=== PATIENT | female | born 1965 | race Caucasian/White ===

== ENCOUNTER 2018-11-03 08:55 | Inpatient (IN) | payer MEDICAID ==
[~2018-11-03] VITALS: Ht 152.4 cm; Wt 38.6 kg
[2018-11-03] MEDS ORDERED: IV NORMAL SALINE 1000 ML BAG IV ONE (09:15)
--- NOTE | 2018-11-03 09:30 | NUR ---
pt is in room #1b. dr Augustin evaluated the pt.
[2018-11-03 09:41] LABS: CARBON DIOXIDE 24 mmol/L (21-32); CREATININE 1.3 mg/dL (0.6-1.3); GLUCOSE 91 mg/dL (74-106); UREA NITROGEN, BLOOD 23 mg/dL (7-18)
[2018-11-03 09:41] LABS: BASOPHILS % (AUTO) 0.5 % (0.0-2.0); EOSINOPHILS % (AUTO) 0.2 % (0.0-7.0); HEMATOCRIT 30.7 % (31.2-41.9); HEMOGLOBIN 10.5 g/dL (10.9-14.3); LYMPHOCYTES % (AUTO) 12.6 % (20.5-51.5); MEAN CORPUSCULAR HEMOGLOBIN 34.5 uug (24.7-32.8); MEAN CORPUSCULAR HGB CONC 34 g/dL (32.3-35.6); MEAN CORPUSCULAR VOLUME 100.7 fL (75.5-95.3); MONOCYTES # (AUTO) 0.3 K/uL (2.0-10.0); MONOCYTES % (AUTO) 4.2 % (0.0-11.0); NEUTROPHILS # (AUTO) 6.7 K/uL (1.8-8.9); NEUTROPHILS % (AUTO) 82.5 % (38.5-71.5); PLATELET COUNT (AUTO) 188 K/uL (179-408); RED BLOOD CELL COUNT(AUTO) 3.05 MIL/uL (3.63-4.92); WHITE BLOOD COUNT (AUTO) 8.1 K/uL (3.8-11.8)
[2018-11-03] MEDS ORDERED: FAMO40TA71 PO (09:41)
[2018-11-03] MEDS ORDERED: DIVA-78 PO (09:41)
[2018-11-03] MEDS ORDERED: METO25TA6 PO (09:41)
[2018-11-03] MEDS ORDERED: CARV3.122 PO (09:41)
[2018-11-03] MEDS ORDERED: AMLO10TA7 PO (09:41)
[2018-11-03] MEDS ORDERED: CALC-494 PO (09:41)
[2018-11-03] MEDS ORDERED: ASPI-605 PO (09:41)
[2018-11-03] MEDS ORDERED: HYDR50TA3 PO (09:41)
[2018-11-03] MEDS ORDERED: ARIP5TAB10 PO (09:41)
[2018-11-03] MEDS ORDERED: SODI650T PO (09:41)
[2018-11-03] MEDS ORDERED: [UNRECOGNIZED DRUG - CODE] PO (09:41)
[2018-11-03] MEDS ORDERED: BENA40TA8 PO (09:41)
[2018-11-03] MEDS ORDERED: CALC-20 PO (09:41)
[2018-11-03] MEDS ORDERED: MULT1TAB73 PO (09:41)
[2018-11-03] MEDS ORDERED: NIFE20CA8 PO (09:41)
[2018-11-03] MEDS ORDERED: CLON0.2T PO (09:41)
[2018-11-03] MEDS ORDERED: MELA3TAB PO (09:41)
[2018-11-03] MEDS ORDERED: SULF1TAB48 PO (09:41)
[2018-11-03] MEDS ORDERED: POTA10TA15 PO (09:41)
[2018-11-03] MEDS ORDERED: CITR15SO PO (09:41)
[2018-11-03] MEDS ORDERED: LOPE2CAP PO (09:41)
[2018-11-03] MEDS ORDERED: CHOL200010 PO (09:41)
[2018-11-03] MEDS ORDERED: ATOR40TA PO (09:41)
[2018-11-03] MEDS ORDERED: LEVO50TA8 PO (09:41)
[2018-11-03] MEDS ORDERED: HYDR-3801 PO (09:41)
[2018-11-03] MEDS ORDERED: LACO200T2 PO (09:41)
[2018-11-03] MEDS ORDERED: MAGN64TA13 PO (09:41)
[2018-11-03 09:42] LABS: CHLORIDE 104 mmol/L (98-107); POTASSIUM 5.1 mmol/L (3.5-5.1)
[2018-11-03 09:48] LABS: ACETAMINOPHEN 3.6 ug/mL (10-30); ALANINE AMINOTRANSFERASE 589 U/L (14-59); ALKALINE PHOSPHATASE 412 U/L (50-136); ASPARTATE AMINOTRANSFERASE 172 U/L (15-37); BILIRUBIN,DIRECT 0.1 mg/dL (0.0-0.2); BILIRUBIN,TOTAL 0.3 mg/dL (0.2-1.0); TOTAL PROTEIN, SERUM 6.7 g/dL (6.4-8.2)
[2018-11-03 09:50] LABS: ETHANOL < 3 MG/DL (0-0)
[2018-11-03 10:02] LABS: *BILIRUBIN,URIN NEGATIVE (NEGATIVE); *BLOOD, URINE NEGATIVE (NEGATIVE); *CLARITY,URINE CLEAR (CLEAR); *COLOR,URINE YELLOW (YELLOW); *KETONES,URINE NEGATIVE (NEGATIVE); *UROBILINOGEN,URINE 0.2 E.U./dl (NORMAL); LEUKOCYTE ESTERASE ,URINE TRACE (NEGATIVE); NITRITE, URINE NEGATIVE (NEGATIVE); PH,URINE 7.5 (5.0-8.0); UGLUCOSE NEGATIVE (NEGATIVE)
[2018-11-03 10:06] LABS: BACTERIA,URINE FEW /HPF (NONE SEEN); RBC,URINE NONE SEEN /HPF (0-3); SQUAMOUS EPITHELIAL CELL,UR FEW /HPF (NONE SEEN)
[2018-11-03 10:11] LABS: *AMPHETAMINE, URINE NEGATIVE (NEGATIVE); *BARBITURATE, URINE NEGATIVE (NEGATIVE); *CANNABINOID, URINE NEGATIVE (NEGATIVE); *COCCAINE, URINE NEGATIVE (NEGATIVE); *OPIATE, URINE NEGATIVE (NEGATIVE); *PHENCYCLIDINE SCREEN,URINE NEGATIVE (NEGATIVE)
[2018-11-03] MEDS ORDERED: PIPERACILLIN SODIUM/TAZOBACTAM 3.375 G in IV DEXTROSE 5% 50 ML IV ONE (10:15)
[2018-11-03] MEDS ORDERED: METRONIDAZOLE 500 MG/NS 100 ML PIGGYBACK IV ONE (10:15)
[2018-11-03] MEDS ORDERED: METRONIDAZOLE 500 MG/NS 100ML 100 ML IV ONE (10:16)
[2018-11-03] MEDS ORDERED: PIPERACILLIN/TAZOBACTAM/D5W 50 ML IV ONE (10:16)
[2018-11-03] MEDS ORDERED: LORAZEPAM 2 MG/1 ML VIAL IV ONE (10:30)
[2018-11-03] MEDS ORDERED: LORAZEPAM 2 MG/1 ML VIAL ONE (10:33)
[2018-11-03] MEDS ORDERED: Z GUARD REMEDY PASTE 57 GM TUBE TOP PRN (11:15)
[2018-11-03] MEDS ORDERED: ACETAMINOPHEN 325 MG TABLET PO PRN (11:15)
[2018-11-03] MEDS ORDERED: LOPERAMIDE HCL 2 MG CAPSULE PO PRN (11:15)
[2018-11-03] MEDS ORDERED: ONDANSETRON 4 MG/2 ML VIAL IV PRN (11:15)
[2018-11-03] MEDS ORDERED: HYDROCODONE/APAP 5-325MG TABLET PO PRN (11:15)
[2018-11-03] MEDS ORDERED: MAGNESIUM HYDROXIDE 30 ML LIQUID UDC PO PRN (11:15)
--- NOTE | 2018-11-03 11:33 | NUR ---
REPORT WAS GIVEN TO MEAT PACKER. PT WAS TRANSFERED TO ROOM #307.
--- NOTE | 2018-11-03 12:00 | NUR ---
ADMITTED FROM HOME VIA ER AWAKE ALERT BUT CONFUSED X3 WITH AT BEDSIDE, DENIES PAIN OR SOB. ROUTINE ADMISSION ASSESSMENT INITIATED DR CR NOTIFIED OF ADMISSION WITH ORDERS. CONTINUE WITH TELE MONITORING
[2018-11-03 12:46] VITALS: BP 153/83
[2018-11-03] MEDS: IV NS 1000 ML 1,000 ML IV PRN (12:57)
[2018-11-03 16:17] VITALS: BP 167/79
[2018-11-03] MEDS: DIVALPROEX 500 MG TABLET.DR PO SCH (16:40)
[2018-11-03] MEDS: CLONIDINE HCL 0.2 MG TABLET PO SCH (16:40)
[2018-11-03] MEDS: CEFTRIAXONE 1 G in IV DEXTROSE 5% 50 ML IV SCH (16:41)
[2018-11-03] MEDS: HYDROCORTISONE 10 MG TABLET PO SCH (16:43)
[2018-11-03] MEDS ORDERED: NIFEDIPINE 60 MG PO SCH (17:00)
--- NOTE | 2018-11-03 17:16 | NUR ---
PATIENT WITH ON AND OFF CONFUSION AND CRYING "I WANT MY ROLLER SKATE BOARD" WANTS TO GET OUT OF BED. SR ON MONITOR. CLOSELY MONITORED.
[2018-11-03] MEDS: CARVEDILOL 3.125 MG TABLET PO SCH (18:00)
--- NOTE | 2018-11-03 19:30 | NUR ---
PATIENT RECEIVED LYING IN BED AND CONFUSED. NO SIGNS OF ACUTE DISTRESS. COMFORT MEASURES PROVIDED. BED IN LOWEST POSITION. SIDE RAILS X2.
--- NOTE | 2018-11-03 19:31 | NUR ---
RECEIVED PT ON BED. PT SHOWS NO ACUTE DISTRESS. IV INTACT AND INFUSING NS. SAFETY AND COMFORT PROVIDED. WILL CONTINUE TO MONITOR.
[2018-11-03] MEDS: METOPROLOL TARTRATE 25 MG TABLET PO SCH (21:00)
[2018-11-03 21:09] VITALS: BP 105/55
[2018-11-03] MEDS: ATORVASTATIN 40 MG TABLET PO SCH (21:22)
[2018-11-03] MEDS: MELATONIN 3 MG TABLET PO SCH (21:22)
[2018-11-03] MEDS: LACOSAMIDE 50 MG TABLET PO SCH (21:22)
[2018-11-03] MEDS: FAMOTIDINE 20 MG TABLET PO SCH (21:32)
[2018-11-04] MEDS: IV NS 1000 ML 1,000 ML IV PRN ×2 (02:03→13:58)
[2018-11-04 05:09] VITALS: BP 118/62
[2018-11-04] MEDS: LEVOTHYROXINE SODIUM 50 MCG TABLET PO SCH (06:09)
[2018-11-04 06:44] LABS: BASOPHILS # (AUTO) 0.1 K/uL (0.0-8.0); BASOPHILS % (AUTO) 0.9 % (0.0-2.0); EOSINOPHILS # (AUTO) 0.1 K/uL (0.0-0.7); EOSINOPHILS % (AUTO) 0.9 % (0.0-7.0); HEMATOCRIT 27.7 % (31.2-41.9); HEMOGLOBIN 9.3 g/dL (10.9-14.3); LYMPHOCYTES # (AUTO) 2.3 K/uL (20.0-40.0); LYMPHOCYTES % (AUTO) 35.7 % (20.5-51.5); MEAN CORPUSCULAR HEMOGLOBIN 33.9 uug (24.7-32.8); MEAN CORPUSCULAR HGB CONC 34 g/dL (32.3-35.6); MONOCYTES # (AUTO) 0.6 K/uL (2.0-10.0); MONOCYTES % (AUTO) 8.6 % (0.0-11.0); NEUTROPHILS # (AUTO) 3.5 K/uL (1.8-8.9); NEUTROPHILS % (AUTO) 53.9 % (38.5-71.5); PLATELET COUNT (AUTO) 164 K/uL (179-408); RED BLOOD CELL COUNT(AUTO) 2.75 MIL/uL (3.63-4.92); WHITE BLOOD COUNT (AUTO) 6.4 K/uL (3.8-11.8)
--- NOTE | 2018-11-04 06:53 | NUR ---
SHIFT REPORT GIVEN TO AM NURSE. PATIENT INTERMITTENTLY SLEEPING. CONFUSED AND FORGETFULL. NO SIGNS OF ACUTE DISTRESS. A/O X4. COMFORT MEASURES PROVIDED. BED IN LOWEST POSITION. SIDE RAILS UP X2. HOB ELEVATED FOR ASPIRATION PRECAUTIONS.
[2018-11-04 07:07] LABS: MAGNESIUM 1.4 mg/dL (1.8-2.4); PHOSPHOROUS 4.9 mg/dL (2.5-4.9)
--- NOTE | 2018-11-04 07:25 | NUR ---
RESTING IN BED WITH EYES CLOSE NO SS OF ACUTE PAIN OR DISTRESS. NO REACTION FROM ANTIBIOTIC CLOSELY MONITORED
[2018-11-04] MEDS: CARVEDILOL 3.125 MG TABLET PO SCH ×2 (08:00→18:00)
[2018-11-04] MEDS: FAMOTIDINE 20 MG TABLET PO SCH ×2 (08:14→20:45)
[2018-11-04] MEDS: ARIPIPRAZOLE 5 MG TABLET PO SCH (08:14)
[2018-11-04] MEDS: CHOLECALCIFEROL 1,000 UNIT TABLET PO SCH (08:15)
[2018-11-04] MEDS: HYDROCORTISONE 10 MG TABLET PO SCH ×2 (08:15→16:31)
[2018-11-04] MEDS: LACOSAMIDE 50 MG TABLET PO SCH ×2 (08:15→20:45)
[2018-11-04] MEDS: ASPIRIN EC 81 MG TABLET.DR PO SCH (08:15)
[2018-11-04] MEDS: CLONIDINE HCL 0.2 MG TABLET PO SCH ×2 (08:15→16:29)
[2018-11-04] MEDS: METOPROLOL TARTRATE 25 MG TABLET PO SCH (08:16)
[2018-11-04] MEDS: MULTIVITAMINS,THERAPEUTIC TABLET PO SCH (08:16)
[2018-11-04] MEDS: DIVALPROEX 500 MG TABLET.DR PO SCH ×2 (08:16→16:28)
[2018-11-04] MEDS ORDERED: CALCIUM CARBONATE PO SCH (09:00)
[2018-11-04] MEDS ORDERED: AMLODIPINE 10 MG TABLET PO SCH (09:00)
[2018-11-04] MEDS ORDERED: CALCIUM CARBONATE 500 MG TABLET PO SCH (09:00)
[2018-11-04] MEDS: HYDROCHLOROTHIAZIDE 25 MG TABLET PO SCH (09:00)
[2018-11-04] MEDS ORDERED: Medication Not On Formulary EA (Multivitamins (Multivitamin) 1 EACH) PO SCH (09:00)
[2018-11-04] MEDS ORDERED: Medication Not On Formulary EA (Benazepril Hcl 40 MG) PO SCH (09:00)
[2018-11-04] MEDS ORDERED: VITAMIN D3 PO SCH (09:00)
[2018-11-04] MEDS: BENAZEPRIL HCL 20 MG TABLET PO SCH (09:00)
[2018-11-04] MEDS ORDERED: [UNRECOGNIZED DRUG - OTHER] PO SCH (09:00)
[2018-11-04] MEDS: MAGNESIUM SULFATE/D5W 100 ML IV SCH ×3 (10:06→12:00)
[2018-11-04] MEDS ORDERED: CALCIUM CARBONATE 500 MG TAB.CHEW PO SCH (11:15)
[2018-11-04] MEDS: MAGNESIUM CHLORIDE 64 MG TABLET.SA PO SCH (12:03)
--- NOTE | 2018-11-04 12:05 | NUR ---
SEEN BY DR CR NOTED ABNORMAL LABS WITH ORDER TO REPLACE MAGNESIUM. CONTINUE TO HAVE EPISODES OF CRYING AWAITING PSYCH CONSULT UNDER DR HOLLY
[2018-11-04 12:10] VITALS: BP 94/49
[2018-11-04] MEDS: CEFTRIAXONE 1 G in IV DEXTROSE 5% 50 ML IV SCH (15:10)
[2018-11-04 16:24] VITALS: BP 122/63
[2018-11-04] MEDS ORDERED: CITR30SO2 PO (18:30)
[2018-11-04 19:36] VITALS: BP 141/74
[2018-11-04] MEDS: MELATONIN 3 MG TABLET PO SCH (20:44)
[2018-11-04] MEDS: ATORVASTATIN 40 MG TABLET PO SCH (20:45)
[2018-11-04] MEDS: CALCIUM CARB/VITAMIN D 500MG-200UNITS TABLET PO SCH (20:46)
[2018-11-04] MEDS ORDERED: CITRIC ACID/SODIUM CITRATE 30 ML SOLUTION PO SCH (21:00)
--- NOTE | 2018-11-04 23:10 | NUR ---
RECEIVED REPORT FROM CHEMICAL PRODUCTION MACHINE OPERATOR. PATIENT ASLEEP IN BED. NO RESP. DISTRESS NOTED. IVF INFUSING WELL. NO S/S OF ANY PAIN OR DISCOMFORT. CALL LIGHT IN REACH. BED ALARM ON. WILL CONTINUE TO MONITOR AND ASSESS.
[2018-11-05] MEDS: IV NS 1000 ML 1,000 ML IV PRN ×3 (01:31→21:13)
[2018-11-05 03:17] VITALS: BP 166/78
[2018-11-05 05:37] LABS: BASOPHILS % (AUTO) 0.6 % (0.0-2.0); EOSINOPHILS % (AUTO) 0.6 % (0.0-7.0); HEMATOCRIT 26.8 % (31.2-41.9); HEMOGLOBIN 9.2 g/dL (10.9-14.3); LYMPHOCYTES # (AUTO) 1.9 K/uL (20.0-40.0); LYMPHOCYTES % (AUTO) 34.9 % (20.5-51.5); MEAN CORPUSCULAR HEMOGLOBIN 34.2 uug (24.7-32.8); MEAN CORPUSCULAR HGB CONC 34 g/dL (32.3-35.6); MEAN CORPUSCULAR VOLUME 100.1 fL (75.5-95.3); MONOCYTES # (AUTO) 0.5 K/uL (2.0-10.0); MONOCYTES % (AUTO) 9.7 % (0.0-11.0); NEUTROPHILS % (AUTO) 54.2 % (38.5-71.5); PLATELET COUNT (AUTO) 169 K/uL (179-408); RED BLOOD CELL COUNT(AUTO) 2.68 MIL/uL (3.63-4.92); WHITE BLOOD COUNT (AUTO) 5.6 K/uL (3.8-11.8)
[2018-11-05 05:49] LABS: MAGNESIUM 2.1 mg/dL (1.8-2.4); POTASSIUM 3.6 mmol/L (3.5-5.1)
[2018-11-05] MEDS: BENAZEPRIL HCL 20 MG TABLET PO SCH (06:03)
[2018-11-05] MEDS: HYDROCORTISONE 10 MG TABLET PO SCH ×2 (06:03→15:22)
[2018-11-05] MEDS: LEVOTHYROXINE SODIUM 50 MCG TABLET PO SCH (06:05)
--- NOTE | 2018-11-05 06:23 | NUR ---
PATIENT AWAKE IN BED. DENIES PAIN. IVF INFUSING WELL. PATIENTS BP 166/78. ALL OTHER VSS. PATIENT GIVEN EARLY DOSE OF LOTENSIN 40MG PO DAILY. APPLICATION SOFTWARE DEVELOPER NOTIFIED. BED ALARM ON. CALL LIGHT IN REACH. WILL CONTINUE TO MONITOR AND ASSESS.
[2018-11-05] MEDS: LACOSAMIDE 50 MG TABLET PO SCH ×2 (08:13→21:14)
[2018-11-05] MEDS: HYDROCHLOROTHIAZIDE 25 MG TABLET PO SCH (08:13)
[2018-11-05] MEDS: FAMOTIDINE 20 MG TABLET PO SCH ×2 (08:15→21:19)
[2018-11-05] MEDS: ARIPIPRAZOLE 5 MG TABLET PO SCH (08:15)
[2018-11-05] MEDS: CHOLECALCIFEROL 1,000 UNIT TABLET PO SCH (08:16)
[2018-11-05] MEDS: DIVALPROEX 500 MG TABLET.DR PO SCH ×2 (08:16→16:48)
[2018-11-05] MEDS: CALCIUM CARB/VITAMIN D 500MG-200UNITS TABLET PO SCH ×2 (08:16→21:14)
[2018-11-05] MEDS: MULTIVITAMINS,THERAPEUTIC TABLET PO SCH (08:16)
[2018-11-05] MEDS: CLONIDINE HCL 0.2 MG TABLET PO SCH ×2 (08:16→16:48)
--- NOTE | 2018-11-05 08:19 | NUR ---
The 11/04/18 carvedilol dose was not administered per EMAR.
[2018-11-05] MEDS: ASPIRIN EC 81 MG TABLET.DR PO SCH (08:20)
[2018-11-05] MEDS: MAGNESIUM CHLORIDE 64 MG TABLET.SA PO SCH (08:25)
[2018-11-05] MEDS: CARVEDILOL 3.125 MG TABLET PO SCH ×2 (08:43→17:51)
[2018-11-05] MEDS ORDERED: POTASSIUM CHLORIDE 20 MEQ TAB.PRT.SR PO SCH (09:00)
[2018-11-05] MEDS: CITRIC ACID/SODIUM CITRATE 30 ML SOLUTION PO SCH ×4 (09:55→21:14)
[2018-11-05] MEDS: CEphaleXIN 500 MG CAPSULE PO SCH ×2 (11:16→21:14)
[2018-11-05 11:28] VITALS: BP 146/80
[2018-11-05 15:35] VITALS: BP 143/70
--- NOTE | 2018-11-05 18:50 | NUR ---
Pt is complaint with medications, resting in bed with no signs of distress. Pt is AOx2, has not ambulated today. Continue to monitor pt.
--- NOTE | 2018-11-05 19:30 | NUR ---
Received patient awake in bed, not in any form of distress. Patient is palauan speaking only. She is in room air, tolerated. Her IV access is at her right upper chest, 22g to ongoing IV fluid, infusing well, no redness noted around site. No complaints at the moment. Bed in low position, locked, side rails up x 2 , call light within reach. Noise and lights subdued.
--- NOTE | 2018-11-05 20:00 | NUR ---
Noted patient pulled out IV access at right upper chest, patient became anxious because of some bleeding where the IV access was pulled out. Called custom motorcycle painter to help patient calm down and explain that we still need to reinsert the IV access but not on her chest anymore. Patient calmed down after speaking to her with the help of a custom motorcycle painter. IV access reinserted at her left hand, 22g and hooked to IV fluid.
[2018-11-05] MEDS: ATORVASTATIN 40 MG TABLET PO SCH (21:14)
[2018-11-05] MEDS: MELATONIN 3 MG TABLET PO SCH (21:14)
--- NOTE | 2018-11-05 22:00 | NUR ---
Noted patient's daughters requested to see the patient briefly since one of them just arrived from [place], allowed them to see the patient briefly. Paperwork for DPOA that family requested provided and instructed them to fill it up, have it notarized and bring the hospital a copy, family members verbalized understanding. Noted patient able to calm down more after speaking with her daughters.
[2018-11-06 00:05] VITALS: BP 146/60
[2018-11-06 05:29] VITALS: BP 156/77
--- NOTE | 2018-11-06 05:54 | NUR ---
PATIENT SLEEPING INTERMITTENTLY. A/O X1. NO SIGNS OF ACUTE DISTRESS. COMFORT MEASURES PROVIDED. BED IN LOWEST POSITION. SIDE RAILS X2. DPOA PAPERWORK GIVEN TO DAUGHTER AND INSTRUCTED TO SIGN AND NOTARIZE BEFORE BRINGING IT BACK.
[2018-11-06 06:10] LABS: BASOPHILS % (AUTO) 0.8 % (0.0-2.0); EOSINOPHILS % (AUTO) 0.9 % (0.0-7.0); HEMATOCRIT 28.8 % (31.2-41.9); HEMOGLOBIN 9.8 g/dL (10.9-14.3); LYMPHOCYTES # (AUTO) 2.3 K/uL (20.0-40.0); LYMPHOCYTES % (AUTO) 42.4 % (20.5-51.5); MEAN CORPUSCULAR HGB CONC 34 g/dL (32.3-35.6); MEAN CORPUSCULAR VOLUME 99.8 fL (75.5-95.3); MONOCYTES # (AUTO) 0.5 K/uL (2.0-10.0); MONOCYTES % (AUTO) 9.5 % (0.0-11.0); NEUTROPHILS # (AUTO) 2.5 K/uL (1.8-8.9); NEUTROPHILS % (AUTO) 46.4 % (38.5-71.5); PLATELET COUNT (AUTO) 181 K/uL (179-408); RED BLOOD CELL COUNT(AUTO) 2.89 MIL/uL (3.63-4.92); WHITE BLOOD COUNT (AUTO) 5.4 K/uL (3.8-11.8)
[2018-11-06] MEDS: LEVOTHYROXINE SODIUM 50 MCG TABLET PO SCH (06:23)
[2018-11-06] MEDS: HYDROCORTISONE 10 MG TABLET PO SCH ×2 (06:23→16:08)
[2018-11-06 06:35] LABS: CREATININE 0.9 mg/dL (0.6-1.3); POTASSIUM 2.9 mmol/L (3.5-5.1)
[2018-11-06] MEDS: IV NS 1000 ML 1,000 ML IV PRN ×2 (07:31→18:46)
[2018-11-06] MEDS: CITRIC ACID/SODIUM CITRATE 30 ML SOLUTION PO SCH ×4 (08:43→20:28)
[2018-11-06] MEDS: LACOSAMIDE 50 MG TABLET PO SCH ×2 (08:45→20:28)
[2018-11-06] MEDS: CLONIDINE HCL 0.2 MG TABLET PO SCH ×2 (08:45→16:07)
[2018-11-06] MEDS: BENAZEPRIL HCL 20 MG TABLET PO SCH (08:46)
[2018-11-06] MEDS: FAMOTIDINE 20 MG TABLET PO SCH ×2 (08:46→20:28)
[2018-11-06] MEDS: ARIPIPRAZOLE 5 MG TABLET PO SCH (08:46)
[2018-11-06] MEDS: CHOLECALCIFEROL 1,000 UNIT TABLET PO SCH (08:46)
[2018-11-06] MEDS: CARVEDILOL 3.125 MG TABLET PO SCH ×2 (08:47→17:12)
[2018-11-06] MEDS: HYDROCHLOROTHIAZIDE 25 MG TABLET PO SCH (08:47)
[2018-11-06] MEDS: ASPIRIN EC 81 MG TABLET.DR PO SCH (08:47)
[2018-11-06] MEDS: DIVALPROEX 500 MG TABLET.DR PO SCH ×2 (08:47→16:08)
[2018-11-06] MEDS: CEphaleXIN 500 MG CAPSULE PO SCH ×2 (08:47→20:28)
[2018-11-06] MEDS: MULTIVITAMINS,THERAPEUTIC TABLET PO SCH (08:47)
[2018-11-06] MEDS: CALCIUM CARB/VITAMIN D 500MG-200UNITS TABLET PO SCH ×2 (08:47→20:28)
[2018-11-06] MEDS: MAGNESIUM CHLORIDE 64 MG TABLET.SA PO SCH (08:50)
[2018-11-06 11:25] VITALS: BP 157/73
[2018-11-06] MEDS ORDERED: POTASSIUM CHLORIDE 20 MEQ TAB.PRT.SR PO ONE ×3 (12:00→17:00)
[2018-11-06 16:05] VITALS: BP 156/70
--- NOTE | 2018-11-06 18:30 | NUR ---
Notified Dr OLIVO of Diarrhea episodes. Sent Stool for C-DIFF. Pt is in no acute distress. Call light is within reach.
--- NOTE | 2018-11-06 19:42 | NUR ---
Received patient awake in bed, not in any form of distress. Patient is peruvian speaking only. She is in room air, tolerated. Her IV access is on her left hand, 22g to ongoing IV fluid, infusing well, no redness noted around site. No complaints at the moment. Bed in low position, locked, side rails up x 2 , call light within reach. Will continue to monitor.
[2018-11-06 20:02] VITALS: BP_SYST 123; BP_SYST 180; BP_DIAS 60; BP_DIAS 65; BP_DIAS 77
[2018-11-06] MEDS: ATORVASTATIN 40 MG TABLET PO SCH (20:28)
[2018-11-06] MEDS: MELATONIN 3 MG TABLET PO SCH (20:28)
--- NOTE | 2018-11-06 20:30 | NUR ---
Noted blood pressure elevated, patient currently feeling anxious. Helped patient calm down with the help of anguillan speaking DRIVER SALES. blood pressure rechecked and noted a little bit better, will continue to monitor.
[2018-11-06 21:47] VITALS: BP 167/72
--- NOTE | 2018-11-06 23:15 | NUR ---
Patient's blood pressure still elevated even after calming down, paged Caden George, BULKER for medication orders. Spoke with Caden George who ordered to give patient Hydralazine 25mg po one time for the elevated blood pressure.
[2018-11-06] MEDS ORDERED: hydrALAZINE HCL 25 MG TABLET PO ONE (23:30)
[2018-11-07 02:05] VITALS: BP 160/78
[2018-11-07] MEDS: IV NS 1000 ML 1,000 ML IV PRN (05:19)
[2018-11-07 05:56] VITALS: BP 188/79
[2018-11-07] MEDS: LEVOTHYROXINE SODIUM 50 MCG TABLET PO SCH (06:00)
[2018-11-07] MEDS: HYDROCORTISONE 10 MG TABLET PO SCH ×2 (06:00→15:35)
--- NOTE | 2018-11-07 06:00 | NUR ---
Patient's blood pressure elevated again, carvedilol tablet given early will endorse to morning shift.
[2018-11-07] MEDS: CARVEDILOL 3.125 MG TABLET PO SCH ×2 (06:01→18:43)
[2018-11-07 06:53] LABS: BASOPHILS % (AUTO) 0.7 % (0.0-2.0); EOSINOPHILS # (AUTO) 0.1 K/uL (0.0-0.7); EOSINOPHILS % (AUTO) 0.8 % (0.0-7.0); HEMATOCRIT 27.4 % (31.2-41.9); HEMOGLOBIN 9.4 g/dL (10.9-14.3); LYMPHOCYTES # (AUTO) 2.7 K/uL (20.0-40.0); LYMPHOCYTES % (AUTO) 39.7 % (20.5-51.5); MEAN CORPUSCULAR HGB CONC 34 g/dL (32.3-35.6); MONOCYTES # (AUTO) 0.7 K/uL (2.0-10.0); NEUTROPHILS # (AUTO) 3.4 K/uL (1.8-8.9); NEUTROPHILS % (AUTO) 48.8 % (38.5-71.5); PLATELET COUNT (AUTO) 170 K/uL (179-408); RED BLOOD CELL COUNT(AUTO) 2.76 MIL/uL (3.63-4.92); WHITE BLOOD COUNT (AUTO) 6.9 K/uL (3.8-11.8)
[2018-11-07 07:09] LABS: CREATININE 0.9 mg/dL (0.6-1.3); MAGNESIUM 1.4 mg/dL (1.8-2.4); PHOSPHOROUS 3.1 mg/dL (2.5-4.9); POTASSIUM 3.7 mmol/L (3.5-5.1)
[2018-11-07] MEDS: CALCIUM CARB/VITAMIN D 500MG-200UNITS TABLET PO SCH (08:27)
[2018-11-07] MEDS: DIVALPROEX 500 MG TABLET.DR PO SCH ×2 (08:27→16:35)
[2018-11-07] MEDS: ASPIRIN EC 81 MG TABLET.DR PO SCH (08:27)
[2018-11-07] MEDS: BENAZEPRIL HCL 20 MG TABLET PO SCH (08:28)
[2018-11-07] MEDS: HYDROCHLOROTHIAZIDE 25 MG TABLET PO SCH (08:29)
[2018-11-07] MEDS: CEphaleXIN 500 MG CAPSULE PO SCH (08:29)
[2018-11-07] MEDS: CLONIDINE HCL 0.2 MG TABLET PO SCH ×2 (08:29→16:35)
[2018-11-07] MEDS: FAMOTIDINE 20 MG TABLET PO SCH (08:30)
[2018-11-07] MEDS: CHOLECALCIFEROL 1,000 UNIT TABLET PO SCH (08:30)
[2018-11-07] MEDS: MAGNESIUM CHLORIDE 64 MG TABLET.SA PO SCH (08:31)
[2018-11-07] MEDS: CITRIC ACID/SODIUM CITRATE 30 ML SOLUTION PO SCH ×3 (08:31→16:35)
[2018-11-07] MEDS: LACOSAMIDE 50 MG TABLET PO SCH (08:31)
[2018-11-07] MEDS: MULTIVITAMINS,THERAPEUTIC TABLET PO SCH (08:31)
[2018-11-07] MEDS ORDERED: ARIPIPRAZOLE 5 MG TABLET PO SCH (09:00)
[2018-11-07] MEDS ORDERED: MAGNESIUM SULFATE 2 GM in IV DEXTROSE 5% 100 ML IV ONE (11:00)
[2018-11-07] MEDS ORDERED: POTASSIUM CHLORIDE 20 MEQ TAB.PRT.SR PO ONE (11:00)
[2018-11-07] MEDS ORDERED: hydrALAZINE HCL 50 MG TABLET PO PRN (11:00)
[2018-11-07] MEDS ORDERED: ARIP5TAB10 PO (11:29)
[2018-11-07 12:00] VITALS: BP 168/62
[2018-11-07] MEDS: MAGNESIUM SULFATE/D5W 100 ML IV SCH ×2 (12:07→13:28)
[2018-11-07 16:00] VITALS: BP 138/69
[2018-11-07 18:43] VITALS: BP 168/62
--- NOTE | 2018-11-07 18:54 | NUR ---
PT IS STABLE AT THIS TIME, IV REMOVED, WAITING FOR DAUGHTER AGUSTÍN AND HER TO COME TREE WARDEN THE PT. PACKET IS COMPLETE.PT DRESSED AND READY TO GO. CONTINUE TO MONITOR PT.
--- NOTE | 2018-11-07 19:22 | NUR ---
DAUGHTER IS AT BEDSIDE RECEIVING EDUCATION ABOUT PT'S MEDICATIONS. PT DC WITH EXITCARE PACKET, ALL BELONGINGS,AND VALUABLES. IV AND ID BAND REMOVED. PT STABLE TO DC. DAUGHTER AJIT WILL BE TAKING PT HOME SHE IS THE CAREGIVER FOR THE PT.
== END 2018-11-07 20:00 | disposition home or self-care (01) | DRG 463 ==
LOC: ER 08:55 → TELE3 11:31 → MEDSURG3 21:16
PROVIDERS: ADMIT Family Medicine; ATTEND Family Medicine
DX: N39.0 Urinary tract infection, site not specified (principal); G93.41 Metabolic encephalopathy; N17.9 Acute kidney failure, unspecified; E87.2 Acidosis; E44.1 Mild protein-calorie malnutrition; E83.42 Hypomagnesemia; Z68.1 Body mass index [BMI] 19.9 or less, adult; E78.5 Hyperlipidemia, unspecified; E03.9 Hypothyroidism, unspecified; D63.8 Anemia in other chronic diseases classified elsewhere; G40.909 Epilepsy, unspecified, not intractable, without status epilepticus; Z90.49 Acquired absence of other specified parts of digestive tract; Z86.73 Personal history of transient ischemic attack (TIA), and cerebral infarction without residual deficits; Z79.890 Hormone replacement therapy; Z79.899 Other long term (current) drug therapy; M81.0 Age-related osteoporosis without current pathological fracture; B96.4 Proteus (mirabilis) (morganii) as the cause of diseases classified elsewhere; Z16.29 Resistance to other single specified antibiotic; R19.7 Diarrhea, unspecified; F41.0 Panic disorder [episodic paroxysmal anxiety]; F29 Unspecified psychosis not due to a substance or known physiological condition; E87.6 Hypokalemia; Z96.649 Presence of unspecified artificial hip joint; I10 Essential (primary) hypertension; F32.9 Major depressive disorder, single episode, unspecified
CPT/HCPCS: 36415; 70030-TC; 70450; 71045; 80307; 83605; 83735; 84100; 84443; 85025; 85730; 87040; 87077; 87086; 93005; 97110; 97530; A4663; G0378; G0480; G0480-TC; J0696; J2060; J2543; J3475; J3490; J7030; J7060